=== PATIENT | female | born 1950 | race Caucasian/White ===

== ENCOUNTER → 2016-08-04 | Outpatient (CLI) | payer OTHER ==
[~2016-08-04] MED LIST: ACTONEL30 MG PO; CALCIUM PO; DEXILANT60 MG PO; FIBERCON625 M1 PO; FLONASE IH; GLUCOSAMINE-CH1 EA37 PO; MOBIC15 MG PO; MULTIVITAMINS; MULTIVITAMINS PO; OMEGA-3 + VITA1 EAC1 PO; OMEPRAZOLE20 M2 PO; OMEPRAZOLE40 MG PO; PRINIVIL PO; TRAMADOL 50 MG50 MG PO; VITAMIN D-32000 UNIT PO; ZYRTEC10 M2 PO; [UNRECOGNIZED DRUG - OTHER] PO
== END ==
LOC: ULTRA 02:26
DX: E04.1 Nontoxic single thyroid nodule (principal); R59.1 Generalized enlarged lymph nodes

== ENCOUNTER → 2017-04-19 | Outpatient (CLI) | payer OTHER | LOC: RAD 02:15 | DX: Z12.31 Encounter for screening mammogram for malignant neoplasm of breast (principal) ==

== ENCOUNTER → 2019-02-02 | Outpatient (CLI) | payer OTHER | LOC: BC 01:25 | DX: Z12.31 Encounter for screening mammogram for malignant neoplasm of breast (principal) ==

== ENCOUNTER → 2020-03-12 | Outpatient (CLI) | payer OTHER | LOC: BC 08:40 | PROVIDERS: ATTEND Nurse Practitioner | DX: Z12.31 Encounter for screening mammogram for malignant neoplasm of breast (principal) ==

== ENCOUNTER → 2021-03-14 | Outpatient (CLI) | payer OTHER | END | disposition home or self-care (01) | LOC: BC 09:53 | PROVIDERS: ATTEND Nurse Practitioner | DX: Z12.31 Encounter for screening mammogram for malignant neoplasm of breast (principal) ==

== ENCOUNTER → 2021-05-06 | Outpatient (CLI) | payer OTHER ==
--- NOTE | 2021-05-11 21:24 | SLE ---
[facility] [place] [address] POLYSOMNOGRAPHY STUDY Name: CYNTHIA ROBLES Room #: REG [facility]#: [id number] Admission: 05/06/21 Attend Phys: Iraj Steinberg MD Discharge: Date of : 48 Report #: [id number] THIS REPORT FOR: cc: Shasha Felix DNP, Mary E. DNP Khan, Aman U. MD ~ cc: KELSEY Segovia DATE OF SERVICE: 05/06/2021 SLEEP STUDY ATTENDING PHYSICIAN: Dr. Shasha Felix. The patient is 70 years old who weighs 200 pounds with a BMI of 32. The patient had a home sleep study in 04/2021 and was found to have moderate CHRISTINA with worsening during supine sleep. The patient's total AHI was 26 per hour with a supine AHI of 49 per hour. The patient returned to the [facility] for CPAP titration study. During the night study, the patient spent 425 minutes in bed and slept for 329 minutes with a sleep efficiency of 77.5%. Sleep latency was 22.9 minutes with a REM latency of 174 minutes. Sleep architecture showed normal stage 1 sleep, increased stage 2 sleep, increased slow wave and reduced REM sleep, which was 8% of the total sleep time. EKG monitoring revealed an average heart rate of 93 beats per minute. No sustained arrhythmias observed. PLMs were seen at an index of 17 per hour and 8 per hour caused EEG arousals. The patient was started on CPAP at a pressure of 5 cm water and titrated up to 13 cm of water. At the final pressure, the patient slept for 175 minutes. The patient had a supine as well as a REM sleep. The patient's AHI was reduced to 4.1 per hour and oxygen saturations remained above 88%. IMPRESSION: 1. Sleep apnea, diagnosed by previous sleep study. 2. Mild periodic limb movements at an index of 17 per hour and 8 per hour caused EEG arousals. RECOMMENDATIONS: 1. CPAP at 13 cm of water should be used on a nightly basis. 2. Follow up in 4-6 weeks to assess compliance with CPAP and to document clinical improvement. 3. Weight loss is advised. [facility] [address] [place] [address] POLYSOMNOGRAPHY STUDY Name: TRAVISCYNTHIA COREY Room #: REG [facility]#: [id number] Admission: 05/06/21 Attend Phys: Iraj Steinberg MD Discharge: Date of : 48 Report #: [id number] 4. Avoid [employer] depressants. 5. Cautioned regarding driving until symptoms of sleep apnea resolve with the use of CPAP. <ELECTRONICALLY SIGNED> By: Iraj Steinberg MD 05/11/21 [id number] Iraj Steinberg MD /nt
== END ==
LOC: SLEEPLAB 05-03 00:10 → EDSTATUS 15:59 → SLEEPLAB 16:01
PROVIDERS: ATTEND Internal Medicine Critical Care Medicine
DX: G47.33 Obstructive sleep apnea (adult) (pediatric) (principal); Z20.822 Contact with and (suspected) exposure to COVID-19